=== PATIENT | female | born 1960 | race Hispanic/Latino ===

== ENCOUNTER 2017-08-27 08:53 | Day surgery (SDC) | payer OTHER ==
[2017-08-27] MEDS ORDERED: Lactated Ringer's 500 ML IV ONE (09:34)
[2017-08-27] MEDS ORDERED: Propofol 10 mg/ml Inj (20 ML) ONE (10:51)
[2017-08-27 11:20] VITALS: PULSE 56; RESP 19; TEMP 97.2
[2017-08-27 11:28] VITALS: BP 97/53
== END 2017-08-27 12:27 | disposition home or self-care (01) ==
LOC: H.ENDO 08:53
PROVIDERS: ATTEND Internal Medicine Gastroenterology
DX: K30 Functional dyspepsia (principal); E78.5 Hyperlipidemia, unspecified; M81.0 Age-related osteoporosis without current pathological fracture; K31.7 Polyp of stomach and duodenum; K31.89 Other diseases of stomach and duodenum
CPT/HCPCS: 43239; 88305; J2001; J2704; J7120